=== PATIENT | female | born 1990 | race Two or more races ===

== ENCOUNTER 2023-09-14 12:33 | Emergency (ER) | payer OTHER ==
[~2023-09-14] VITALS: Ht 162.6 cm; Wt 70.0 kg
[2023-09-14 12:35] VITALS: O2SAT 98
[2023-09-14 13:02] LABS: HEMATOCRIT. 40.7 % (36.0-48.0); HEMOGLOBIN. 13.4 g/dL (12.0-16.0); MEAN CORPUSCULAR HEMOGLOBIN 32.9 pg (28.0-32.0); MEAN CORPUSCULAR HGB CONC 32.9 g/dL (31.0-37.0); MEAN CORPUSCULAR VOLUME 99.8 fL (81.0-99.0); MEAN PLATELET VOLUME 9.1 fl (7.4-10.4); PLATELET 257 x1000/uL (130-400); RED BLOOD CELL COUNT 4.07 mill/uL (4.2-5.4); RED CELL DISTRIBUTION WIDTH 12.2 % (11.6-14.6); WHITE BLOOD COUNT 20.5 x1000/uL (4.5-11.0)
[2023-09-14 13:05] LABS: DIFFERENTIAL COMMENT 1
[2023-09-14 13:11] LABS: CHLORIDE 109 mEq/L (98-107); POTASSIUM 3.8 mEq/L (3.5-5.1); SODIUM 139 mEq/L (136-145)
[2023-09-14 13:12] LABS: CALCIUM 9.3 mg/dL (8.7-10.4); CARBON DIOXIDE 13 mEq/L (21-32)
[2023-09-14 13:17] LABS: CREATININE 0.7 mg/dL (0.6-1.0); GLUCOSE 111 mg/dL (70-105); UREA NITROGEN BLOOD 11 mg/dL (9-23)
[2023-09-14 13:18] LABS: ETHANOL BLOOD < 10 mg/dL (<10)
[2023-09-14 13:19] LABS: ALANINE AMINOTRANSFERASE 23 IU/L (10-49); ALBUMIN 5.4 g/dL (3.2-4.8); ASPARTATE AMINOTRANSFERASE 38 IU/L (<34); BILIRUBIN DIRECT 0.1 mg/dL (<=3.0)
[2023-09-14 13:20] LABS: BILIRUBIN TOTAL 0.4 mg/dL (0.1-1.0); PROTEIN TOTAL 7.8 g/dL (6.0-8.3)
[2023-09-14 13:45] LABS: HCG SCREEN NEGATIVE
[2023-09-14 13:57] LABS: CLARITY URINE CLEAR (CLEAR); COLOR URINE YELLOW (YELLOW); GLUCOSE URINE NEGATIVE (NEGATIVE); KETONES URINE 3+ (NEGATIVE); LEUKOCYTE ESTERASE URINE TRACE (NEGATIVE); NITRITE URINE NEGATIVE (NEGATIVE); OCCULT BLOOD URINE 2+ (NEGATIVE); PH URINE 5.5 (4.5-8.0); PROTEIN URINE TRACE (NEGATIVE); SPECIFIC GRAVITY URINE 1.017 (1.005-1.030); UROBILINOGEN URINE 0.2 E.U./dL (0.2-1.0)
[2023-09-14] MEDS: METOCLOPRAMIDE HCL 10MG/2ML VIAL IV NR (14:15)
[2023-09-14] MEDS: LACTATED RINGERS 1,400 ML IV SCH (14:15)
[2023-09-14] MEDS ORDERED: LACTATED RINGERS 1,400 ML IV ONE (14:15)
[2023-09-14 14:18] LABS: SQUAMOUS EPITHELIAL CELL URINE 2+ /lpf (RARE/1+)
[2023-09-14 14:19] LABS: BACTERIA URINE TRACE
[2023-09-14 14:20] LABS: RBC URINE NONE SEEN /hpf (0-2); TRICHOMONAS URINE FEW
[2023-09-14] MEDS: CEFTRIAXONE 1GM/50ML 50 ML IV ONE (14:30)
[2023-09-14 14:39] LABS: PLATELET ESTIMATE NORMAL
[2023-09-14 15:35] LABS: HEMOGLOBIN. 12.9 g/dL (12.0-16.0); MEAN CORPUSCULAR HEMOGLOBIN 32.8 pg (28.0-32.0); MEAN CORPUSCULAR HGB CONC 33.2 g/dL (31.0-37.0); MEAN PLATELET VOLUME 8.9 fl (7.4-10.4); PLATELET 240 x1000/uL (130-400); RED BLOOD CELL COUNT 3.94 mill/uL (4.2-5.4); RED CELL DISTRIBUTION WIDTH 12.3 % (11.6-14.6); WHITE BLOOD COUNT 19.5 x1000/uL (4.5-11.0)
[2023-09-14 15:36] LABS: DIFFERENTIAL COMMENT 1
[2023-09-14 15:40] LABS: CHLORIDE 109 mEq/L (98-107); POTASSIUM 4.6 mEq/L (3.5-5.1); SODIUM 138 mEq/L (136-145)
[2023-09-14 15:41] LABS: CALCIUM 9.3 mg/dL (8.7-10.4); CARBON DIOXIDE 21 mEq/L (21-32)
[2023-09-14 15:46] LABS: CREATININE 0.6 mg/dL (0.6-1.0); GLUCOSE 91 mg/dL (70-105); UREA NITROGEN BLOOD 12 mg/dL (9-23)
[2023-09-14 16:18] LABS: PLATELET ESTIMATE NORMAL
[2023-09-14] MEDS ORDERED: CIPR-263 MT (17:05)
[2023-09-14] MEDS ORDERED: METR-167 MT (17:05)
[2023-09-14 17:20] VITALS: BP 130/70; PULSE 80; RESP 15; TEMP 98.5
== END 2023-09-14 17:50 | disposition home or self-care (01) ==
LOC: ER 12:33
DX: K52.9 Noninfective gastroenteritis and colitis, unspecified (principal); Z98.890 Other specified postprocedural states
CPT/HCPCS: 80076; 80048; 81003; 81025; 80320; 84703; 83690; 85025; 85610; 36415; 74176; 93005; 96365; 96375; 99285; J0696; J2765; Z7610 ×2; G0480